=== PATIENT | female | born 1960 | race Caucasian/White ===

== ENCOUNTER 2016-06-05 07:53 | Emergency (ER) | payer MEDICARE ==
[~2016-06-05] VITALS: Ht 162.6 cm; Wt 70.0 kg
[~2016-06-05 07:53] MED LIST: AMOXICILLIN/CL875 MG PO; DEPO-MEDROL80 MG/ML IM; DOXYCYC MONO100 M1 PO; HUMIRA PE1 IM; KEFLEX500 MG PO; OXYCODONE HCL5 MG PO; PRED FORTE1 % OS; PREDNISONE10 MG PO; PREDNISONE5 MG PO; TOBRAMYCIN0.3 % OD; VITAMIN D31000 UNI1 PO; ZOVIRAX400 MG PO
[2016-06-05 08:23] VITALS: BP 157/79
[2016-06-05] MEDS ORDERED: ROBITUSSIN AC10 ML PO (08:33)
== END 2016-06-05 08:25 | disposition home or self-care (01) ==
LOC: ED 07:53
PROC: 0HQ7XZZ Repair Abdomen Skin, External Approach (ICD-10-PCS; principal; 2016-06-05)
DX: T81.31XA Disruption of external operation (surgical) wound, not elsewhere classified, initial encounter (principal); B19.20 Unspecified viral hepatitis C without hepatic coma; M06.9 Rheumatoid arthritis, unspecified; F17.210 Nicotine dependence, cigarettes, uncomplicated; Y83.6 Removal of other organ (partial) (total) as the cause of abnormal reaction of the patient, or of later complication, without mention of misadventure at the time of the procedure

== ENCOUNTER 2017-04-08 17:34 | Inpatient (IN) | payer MEDICARE ==
[~2017-04-08] VITALS: Ht 162.6 cm; Wt 64.5 kg
[~2017-04-08 17:34] MED LIST changes: +ROBITUSSIN AC10 ML PO
--- NOTE | 2017-04-08 17:37 | NUR ---
TO ROOM 12 VIA W/C.
[2017-04-08] MEDS ORDERED: VANTIN200 M1 PO (17:54)
[2017-04-08] MEDS ORDERED: LORTAB 5/3255 MG PO (17:55)
[2017-04-08] MEDS ORDERED: METOPROL TAR25 MG PO (17:56)
[2017-04-08] MEDS ORDERED: PRAVASTATIN10 MG PO (17:57)
[2017-04-08 18:00] LABS: HEMATOCRIT 41.1 % (37.0-47.0); HEMOGLOBIN 13.8 g/dl (12.0-16.0); IMMATURE GRANULOCYTES 0.5 % (0.0-1.0); MEAN CELL VOLUME 95.6 fL CALC (80.0-100.0); MEAN CORPUSCULAR HGB 32.1 pG CALC (26.0-32.0); MEAN CORPUSCULAR HGB CONC 33.6 g/L CALC (32.0-36.0); NEUT# 8.97 thou/uL (2.00-7.15); RED BLOOD COUNT 4.3 mill/uL (4.20-5.60); RED CELL DISTRI WIDTH 13.3 % (11.5-15.5)
[2017-04-08] MEDS ORDERED: ADULT ASPIRIN R81 MG PO (18:03)
[2017-04-08] MEDS ORDERED: SIMPONI50 MG/0.1 SC (18:05)
[2017-04-08] MEDS ORDERED: BIOTIN1000 MCG PO (18:10)
[2017-04-08] MEDS ORDERED: TUMERIC PO (18:12)
--- NOTE | 2017-04-08 18:15 | NUR ---
PAIN AND SOB IMPROVED FROM PRESENTATION, PT RESTING QUIETLY WITH SIG [facility] AT [facility]
[2017-04-08 18:16] LABS: ALBUMIN 3.9 g/dL (3.2-5.0); ALKALINE PHOSPHATASE 163 u/l (38-126); ANION GAP 18 (6-22 (CALC)); BILIRUBIN, TOTAL 0.8 mg/dL (0.0-1.4); BUN 7 mg/dL (7-17); BUN/CREATININE RATIO 12 (12-20 (CALC)); CARBON DIOXIDE 24 mmol/l (22-30); CHLORIDE 103 mmol/l (95-108); CREATININE 0.6 mg/dL (0.5-1.0); GFR > 60 ML/MIN (>=60 (CALC)); GFR FOR AFR.AMER. > 60 ML/MIN (>=60 (CALC)); SGOT/AST 30 u/l (14-36); SGPT/ALT 47 u/l (9-52); SODIUM 141 mmol/l (137-146); TOTAL PROTEIN 7.4 g/dL (6.3-8.2)
[2017-04-08 18:27] LABS: MYOGLOBIN 17 ng/mL (0 - 62)
--- NOTE | 2017-04-08 18:38 | NUR ---
SBAR PRINTED TO FLOOR
[2017-04-08 18:46] LABS: ACT PARTIAL THROMBO TIME 28.7 SECONDS (20.0-32.5); PROTHROMBIN TIME 11.4 SECONDS (9.0-12.5)
--- NOTE | 2017-04-08 18:51 | NUR ---
REPORT TO DAYNA WILCOX
--- NOTE | 2017-04-08 18:56 | NUR ---
RC'D REPORT FROM NEAL WILCOX. PT ASSESSMENT COMPLETE. PT DENIES ANY CHANGE IN STATUS. PT TO XRAY VIA STRETCHER
--- NOTE | 2017-04-08 19:20 | NUR ---
PT RETURNS FROM XRAY. PT UP TO R/R WITH OUT INCIDENT.
--- NOTE | 2017-04-08 19:45 | NUR ---
REPORT TO VONNIE WILCOX
--- NOTE | 2017-04-08 19:45 | NUR ---
PT REASSESSMENT COMPLETE. PT DENIES ANY ADDITIONAL COMPLAINTS. PLAN OF CARE DISCUSSED WITH PT AND FAMILY
--- NOTE | 2017-04-08 20:00 | NUR ---
MEDICATION INFUSING WITH OUT INCIDENT. IV SITE REMAINS PATENT. NO REDNESS OR IRRITATION.
[2017-04-08 20:14] LABS: URINE BLOOD DIPSTICK TRACE-INTACT (NEGATIVE); URINE GLUCOSE - DIPSTICK NEGATIVE (NEGATIVE); URINE KETONE 40 mg/dL (NEGATIVE); URINE LEUK ESTERASE NEGATIVE (NEGATIVE); URINE NITRITE - DIPSTICK NEGATIVE (Negative); URINE PROTEIN - DIPSTICK TRACE mg/dL (NEG-TRACE)
[2017-04-08 20:16] LABS: URINE BILIRUBIN - DIPSTICK NEGATIVE (NEGATIVE); URINE CLARITY CLEAR; URINE COLOR AMBER
--- NOTE | 2017-04-08 20:25 | NUR ---
PT AGAIN VERBALIZES UNDERSTANDING OF PLAN OF CARE. PT TRANSFERED TO MED SURG WITH OUT INCIDENT.
--- NOTE | 2017-04-08 20:34 | NUR ---
RECEIVED FROM ER VIA W/C ACCOMPANIED BY ANNETTA PAETL, AMBULATING TO STANDING SCALE THEN TO BED WITH STEADY GAIT. A/O X3, RESPIRATIONS EVEN AND UNLABORED. ADMITS TO COMING TO HOSPITAL DUE TO SOB. O2 @2L VIA NC APPLIED. DENIES CHEST PAIN. STATES SHE HAD A HIATAL HERNIA REPAIR A WEEK AGO TODAY AT [facility] 04/01/17 IN [place], AND WAS DISCHARGED HOME 04/06/17, HAS BEEN ON A LIQUID DIET PER DR'S ORDERS, STATES SHOULD BE ADVANCING TO FULL LUQUIDS TODAY. PO FLUIDS IN REACH, ENCOURAGED TO USE CALL LIGHT FOR ASSISTANCE, WILL CONTINUE TO MONITOR.
[2017-04-08 20:35] VITALS: BP 99/65
--- NOTE | 2017-04-08 22:51 | NUR ---
MEDICATED WITH TYLENOL 650MG PO FOR C/O HEADACHE 08/03.
[2017-04-09] VITALS (7 sets, daily range): BP systolic 95–120; BP diastolic 57–79
--- NOTE | 2017-04-09 02:00 | NUR ---
RESTING IN SEMIFOWLERS WITH EYES CLOSED, RESPIRATIONS EVEN AND UNLABORED.
[2017-04-09 04:51] LABS: HEMATOCRIT 39.9 % (37.0-47.0); HEMOGLOBIN 13.1 g/dl (12.0-16.0); MEAN CORPUSCULAR HGB 32.2 pG CALC (26.0-32.0); MEAN CORPUSCULAR HGB CONC 32.8 g/L CALC (32.0-36.0); RED BLOOD COUNT 4.07 mill/uL (4.20-5.60); RED CELL DISTRI WIDTH 13.3 % (11.5-15.5)
[2017-04-09 04:55] LABS: ANION GAP 13 (6-22 (CALC)); BUN 6 mg/dL (7-17); BUN/CREATININE RATIO 12 (12-20 (CALC)); CALCULATED LDLCHOLESTEROL 98 mg/dL (62-129 (CALC)); CARBON DIOXIDE 22 mmol/l (22-30); CHLORIDE 110 mmol/l (95-108); CHOLESTEROL HDL RATIO 6.6 (<4.4 (CALC)); CREATININE 0.5 mg/dL (0.5-1.0); GFR > 60 ML/MIN (>=60 (CALC)); GFR FOR AFR.AMER. > 60 ML/MIN (>=60 (CALC)); HDL CHOLESTEROL 21 mg/dL (>=40); POTASSIUM 3.8 mmol/l (3.5-5.1); SODIUM 142 mmol/l (137-146); TOTAL CHOLESTEROL 141 mg/dl (0-199); TOTAL TRIGLYCERIDES 106 mg/dl (30-149); VLDL CHOLESTROL 21 mg/dl (2-49 (CALC))
--- NOTE | 2017-04-09 07:00 | NUR ---
PT RESTING IN BED. O2 AT 2 L. PT ALERT, ORIENTED X3. SPEECH IS CLEAR. PUPILS EQUAL AND REACTIVE TO LIGHT. GOOD SKIN TURGOR. GOOD CAP REFILL. STRONG UPPER AND LOWER EXTREMITIES. BOWEL SOUNDS ACTIVE. GOOD APICAL, RADIAL, PEDAL PULSES. PT STATES WHEN SHE COUGHS SHE CAN HEAR CRACKLES. PT HAS DIMINISHED LUNG SOUNDS ANTERIORLY. CLEAR LUNG SOUNDS LT SIDE POSTERIORLY. RUL SOUNDS DIMINSHED. RLL AND RML CRACKLES. PT HAS #20 LAC, NO REDNESS OR SWELLING. PT STATES HAVING "STIFF" PAIN ON HER LT COLLAR BONE SINCE SURGERY, "SQUEEZING" PAIN TO LT SIDE UNDER BREAST SINCE YESTERDAY, AND A HEADACHE. RN CAISMIRO NOTIFIED. BED IN LOWEST POSITION. SIDE RAILS UP. CALL LIGHT WITHIN REACH. WILL CONTINUE TO MONITOR.
--- NOTE | 2017-04-09 08:20 | NUR ---
ASSESSMENT IS COMPLETED: HR IS REG, PULSES ARE STRONG X4. ABD IS SOFT WITH ACTIVE BS, CONTINUE TO OBSERVE AND MONITOR.
--- NOTE | 2017-04-09 12:45 | NUR ---
PT IS VISITING WITH FAMILY , NO DISTRESS NOTED. IV SITE IS FREE FROM REDNESS OR EDEMA. CONTINUE TO OSEBRVE AND MONITOR.
--- NOTE | 2017-04-09 12:47 | NUR ---
Drug Selected: Vancomycin Age: 57 years Weight: 64 kg Height: 64 in Gender: Female SCR: 0.5 mg/dl Give Vancomycin 1250 mg q12 hrs NEXT TROUGH WILL BE 04/10/17 BEFORE AM DOSE
--- NOTE | 2017-04-09 15:20 | NUR ---
PT WENT FOR HER THORACENTESIS
--- NOTE | 2017-04-09 16:08 | NUR ---
PT HAD THORACENTESIS COMPLETED: DRESSING ON LEFT SHOULDER. HAD 2 LITERS OF FLUID OBTAINED.
--- NOTE | 2017-04-09 16:45 | NUR ---
PT IS RELAXING IN BED VISITING WITH FAMILY. IV SITE IS FREE FROM REDNESS OR EDEMA.
--- NOTE | 2017-04-09 20:21 | NUR ---
BEDSIDE REPORT RECEIVED FROM JORGE KIRKPATRICK. PT RESTING IN BED WATCHING TV. DENIES PAIN AT THIS TIME. RESPIRATIONS EVEN AND UNLABORED ON OXYGEN. PLAN OF CARE DISCUSSED. PT ENCOURAGED TO VERBALIZE CONCERNS. STATES UNDERSTANDING. SAFETY MEASURES IN PLACE. CALL LIGHT WITHIN REACH.
--- NOTE | 2017-04-10 00:25 | NUR ---
PT ASLEEP AT THIS TIME; AWAKENS SPONTANEOUSLY. DENIES PAIN CURRENTLY. RESPIRATIONS EVEN AND UNLABORED ON OXYGEN. ABT INFUSING WITHOUT DIFFICULTY; IV SITE APPEARS HEALTHY. PT INDEPENDENT IN ROOM; USES CALL LIGHT PRN. HAS NO REQUESTS AT THIS TIME. SAFETY MEASURES IN PLACE. CALL LIGHT WITHIN REACH.
[2017-04-10 04:00] VITALS: BP 91/45
--- NOTE | 2017-04-10 05:13 | NUR ---
PT AWAKENS SPONTANEOUSLY. DENIES PAIN CURRENTLY. RESPIRATIONS EVEN AND UNLABORED. PT HAS NO REQUESTS AT THIS TIME. CALL LIGHT WITHIN REACH.
[2017-04-10 06:05] LABS: HEMOGLOBIN 12.4 g/dl (12.0-16.0); IMMATURE GRANULOCYTES 0.5 % (0.0-1.0); MEAN CELL VOLUME 97.1 fL CALC (80.0-100.0); MEAN CORPUSCULAR HGB 32.5 pG CALC (26.0-32.0); MEAN CORPUSCULAR HGB CONC 33.5 g/L CALC (32.0-36.0); NEUT# 8.58 thou/uL (2.00-7.15); RED BLOOD COUNT 3.81 mill/uL (4.20-5.60); RED CELL DISTRI WIDTH 13.3 % (11.5-15.5)
[2017-04-10 06:14] LABS: ANION GAP 15 (6-22 (CALC)); BUN 6 mg/dL (7-17); BUN/CREATININE RATIO 11 (12-20 (CALC)); CARBON DIOXIDE 22 mmol/l (22-30); CHLORIDE 109 mmol/l (95-108); CREATININE 0.5 mg/dL (0.5-1.0); GFR > 60 ML/MIN (>=60 (CALC)); GFR FOR AFR.AMER. > 60 ML/MIN (>=60 (CALC)); MAGNESIUM 1.9 mg/dL (1.6-2.3); POTASSIUM 4.7 mmol/l (3.5-5.1); SODIUM 141 mmol/l (137-146)
[2017-04-10 09:10] VITALS: BP 107/59
[2017-04-10 11:00] VITALS: BP 104/70
[2017-04-10] MEDS ORDERED: DOXYCYCL HYC100 MG PO (13:34)
[2017-04-10] MEDS ORDERED: RESTORIL15 M1 PO (15:36)
--- NOTE | 2017-04-10 16:52 | NUR ---
Discharge instructions given. Patient verbalizes understanding of same. Discharged in stable condition via Wheelchair to Home with family. All belongings sent with pt.
== END 2017-04-10 16:50 | disposition home or self-care (01) | DRG 190 ==
LOC: ED 17:34 → ED-I 18:25 → ED 20:19 → MS2 20:20
PROVIDERS: Emergency Medicine; Nurse Practitioner Family; ADMIT Internal Medicine; ATTEND Internal Medicine
PROC: 0W9B3ZZ Drainage of Left Pleural Cavity, Percutaneous Approach (ICD-10-PCS; principal; 2017-04-09)
DX: J44.0 Chronic obstructive pulmonary disease with (acute) lower respiratory infection (principal); J18.9 Pneumonia, unspecified organism; J96.00 Acute respiratory failure, unspecified whether with hypoxia or hypercapnia; J91.8 Pleural effusion in other conditions classified elsewhere; J44.1 Chronic obstructive pulmonary disease with (acute) exacerbation; M06.9 Rheumatoid arthritis, unspecified; M79.7 Fibromyalgia; B19.20 Unspecified viral hepatitis C without hepatic coma; H54.62 Unqualified visual loss, left eye, normal vision right eye; E78.5 Hyperlipidemia, unspecified; Y95 Nosocomial condition; Z95.5 Presence of coronary angioplasty implant and graft; Z87.891 Personal history of nicotine dependence; Z79.899 Other long term (current) drug therapy
CPT/HCPCS: J3370